=== PATIENT | male | born 1950 | race Caucasian/White ===

== ENCOUNTER 2016-09-18 15:21 | Inpatient (IN) | payer MEDICARE ==
[~2016-09-18 15:21] MED LIST: AUGMENTIN875 MG PO; DIFLUCAN DPS200 MG PO; DILANTIN DPS100 MG PO; DULCOLAX-DPS10 MG PR; FLOMAX DPS0.4 MG PO; FLONASE 0.05% D16 GM NS; LOPRESSOR DPS12.5 MG PO; MAALOX DPS30 ML PO; MICRO-K DPS10 MEQ PO; MILK OF MA400 MG/5 M PO; MIRALAX DPS17 GM PO; PAXIL10 MG PO; PLAVIX75 MG PO; SURFAK DPS240 MG PO; TYLENOL DPS325 MG PO; ZOCOR DPS40 MG PO; ZYLOPRIM-DPS300 MG PO
[2016-09-24] MEDS ORDERED: MILK OF MAGNESI10 ML PO (09:56)
[2016-09-24] MEDS ORDERED: CITRIC ACID PO (09:57)
[2016-09-24] MEDS ORDERED: POTASSIUM CITRATE PO (09:57)
[2016-09-24] MEDS ORDERED: SENOKOT S1 TAB PO (09:57)
[2016-09-24] MEDS ORDERED: TYLENOL DP650 MG/20. PO (09:58)
[2016-09-24] MEDS ORDERED: DULCOLAX-DPS10 MG PR (09:58)
[2016-09-24] MEDS ORDERED: MYCOSTATIN PWD15 GM TP (09:58)
== END 2016-09-23 11:03 | DRG 872 ==
DX: A41.9 Sepsis, unspecified organism (principal); N17.9 Acute kidney failure, unspecified; I69.354 Hemiplegia and hemiparesis following cerebral infarction affecting left non-dominant side; R56.9 Unspecified convulsions; B37.41 Candidal cystitis and urethritis; N13.2 Hydronephrosis with renal and ureteral calculous obstruction; R65.20 Severe sepsis without septic shock; K38.8 Other specified diseases of appendix; I69.320 Aphasia following cerebral infarction; N40.0 Benign prostatic hyperplasia without lower urinary tract symptoms; F32.9 Major depressive disorder, single episode, unspecified; I69.398 Other sequelae of cerebral infarction; I10 Essential (primary) hypertension; K59.00 Constipation, unspecified; Z86.718 Personal history of other venous thrombosis and embolism; Z85.038 Personal history of other malignant neoplasm of large intestine; Z87.891 Personal history of nicotine dependence; Z66 Do not resuscitate